=== PATIENT | female | born 2000 ===

== ENCOUNTER 2022-02-15 13:52 | Inpatient (IN) ==
[2022-02-15] MEDS ORDERED: Famotidine 20 MG/2 ML VIAL IVP PRN (15:13)
[2022-02-15] MEDS ORDERED: Naloxone 0.4 MG/ML INJ IVP PRN (15:13)
[2022-02-15] MEDS ORDERED: Ondansetron 4 MG/2 ML VIAL IVP PRN (15:13)
[2022-02-15] MEDS ORDERED: Metoclopramide 10 MG/2 ML VIAL IVP PRN (15:13)
[2022-02-15 15:49] LABS: Amphetamine Screen,Urine Negative ng/mL (Cutoff=1000); Barbiturate Screen,Urine Negative ng/mL (Cutoff=200); Benzodiazepines Screen,Urine Negative ng/mL (Cutoff=200); Cannabinoid Screen,Urine Negative ng/mL (Cutoff = 50); Cocaine Screen,Urine Negative ng/mL (Cutoff= 300); Opiate Screen,Urine Negative ng/mL (Cutoff=300); Phencyclidine Screen,Urine Negative ng/mL (Cutoff=25); Protein/Creatinine Ratio,Urine 0.18 mg/mg (0.00-0.20)
[2022-02-15 15:50] LABS: Basophils % 0.3 %; Eosinophils # 0.1 K/mcL (0.0-0.6); Eosinophils % 0.9 %; Hematocrit 34.4 % (35.3-44.9); Hemoglobin 11.1 g/dL (11.5-15.4); Immature Granulocytes % 0.7 % (0-4); Lymphocytes # 1.6 K/mcL (0.6-4.6); Lymphocytes % 17.5 %; Mean Corpuscular HGB Conc 32.3 g/dL (31.6-35.5); Mean Corpuscular Volume 86.9 fL (83.0-100.0); Mean Platelet Volume 11.1 fL (9.4-12.4); Monocytes # 0.7 K/mcL (0.0-1.3); Monocytes % 7.6 %; Neutrophils # 6.7 K/mcL (1.6-8.9); Platelet Count 214 K/mcL (140-400); Red Blood Count 3.96 M/mcL (3.82-4.97); Red Cell Distribution Width 13.2 % (11.5-14.5); White Blood Count 9.1 K/mcL (4.3-11.1)
[2022-02-15] MEDS ORDERED: Ropivacaine/PF 0.2% 20 ML VIAL EP ONE (15:52)
[2022-02-15] MEDS ORDERED: EPHEDrine 50 MG/ML VIAL IVP PRN (15:52)
[2022-02-15] MEDS ORDERED: *HR* FentaNYL (PF) 100 MCG/2 ML VIAL EP ONE (15:52)
[2022-02-15] MEDS ORDERED: miSOPROStoL 25 MCG TABLET VG PRN (16:00)
[2022-02-15 16:12] LABS: Alanine Aminotransferase 6 Units/L (7-52); Aspartate Amino Transferase 14 Units/L (13-39); BUN/Creatinine Ratio 23 (6-26); Blood Urea Nitrogen 15 mg/dL (6-20); Lactate Dehydrogenase 190 Units/L (140-271); Uric Acid 5.2 mg/dL (2.3-7.6)
[2022-02-15] MEDS ORDERED: Morphine Sulfate 2 MG/ML SYRINGE IVP PRN (23:41)
[2022-02-16] MEDS ORDERED: miSOPROStoL 25 MCG TABLET PO ONE (04:27)
[2022-02-16] MEDS ORDERED: Prenatal Vit/FA 1 EACH TABLET PO SCH (09:00)
[2022-02-16] MEDS ORDERED: Oxytocin 30 UNIT/503 ML BAG IVC SCH ×2 (09:00→22:44)
[2022-02-16] MEDS ORDERED: Ringers Solution, Lactated 1,000 ML ONE (11:47)
[2022-02-16] MEDS: D5% in Lactated Ringers 1,000 ML IVC SCH (14:05)
[2022-02-16] MEDS: Epidural Premix (fent/bupiv) 110 ML EP SCH (14:05)
[2022-02-16] MEDS ORDERED: Ringers Solution, Lactated 1,000 ML IVC SCH ×2 (14:15→22:44)
[2022-02-16] MEDS ORDERED: 0.9 % Sodium Chloride 1,000 ML ONE (16:43)
[2022-02-16] MEDS ORDERED: Clindamycin 900 MG/50 ML 900 MG/50 ML IV.SOLN IVPB ONE (19:14)
[2022-02-16] MEDS ORDERED: Oxytocin 30 UNIT/503 ML BAG IVC ONE (19:16)
[2022-02-16] MEDS ORDERED: Acetaminophen IV 1,000 MG/100 ML BAG IVPB ONE (19:31)
[2022-02-16] MEDS ORDERED: Ketorolac 30 MG/ML VIAL ONE (19:32)
[2022-02-16] MEDS ORDERED: Ondansetron 4 MG/2 ML VIAL ONE (19:32)
[2022-02-16] MEDS ORDERED: Metoclopramide 10 MG/2 ML VIAL IVP PRN (22:44)
[2022-02-16] MEDS ORDERED: *HR* Enoxaparin 60 MG/0.6 ML SYRINGE SQ SCH (22:44)
[2022-02-16] MEDS ORDERED: OXYTOCIN/RINGERS LACTATE 10 UNIT/166.6 ML BAG IVC ONE (22:44)
[2022-02-16] MEDS ORDERED: Ondansetron 4 MG/2 ML VIAL IVP PRN (22:44)
[2022-02-16] MEDS ORDERED: Simethicone 80 MG TAB.CHEW PO PRN (22:44)
[2022-02-16] MEDS ORDERED: Rho Immune Globulin 1,500 UNIT SYRINGE IM ONE (22:44)
[2022-02-16] MEDS ORDERED: *HR* OxyCODONE Immed Rel 5 MG TABLET PO PRN (22:44)
[2022-02-16] MEDS: Ibuprofen 600 MG TABLET PO SCH (23:29)
[2022-02-16] MEDS: Acetaminophen 325 MG TABLET PO SCH (23:30)
[2022-02-17 04:50] LABS: Basophils % 0.2 %; Hematocrit 28.9 % (35.3-44.9); Hemoglobin 9.6 g/dL (11.5-15.4); Immature Granulocytes % 0.5 % (0-4); Lymphocytes # 1.5 K/mcL (0.6-4.6); Lymphocytes % 9.9 %; Mean Corpuscular HGB Conc 33.2 g/dL (31.6-35.5); Mean Corpuscular Hemoglobin 28.3 pg (28.0-33.3); Mean Corpuscular Volume 85.3 fL (83.0-100.0); Mean Platelet Volume 11.3 fL (9.4-12.4); Monocytes # 1.1 K/mcL (0.0-1.3); Monocytes % 6.8 %; Neutrophils # 12.8 K/mcL (1.6-8.9); Platelet Count 221 K/mcL (140-400); Red Blood Count 3.39 M/mcL (3.82-4.97); Red Cell Distribution Width 13.2 % (11.5-14.5); Segmented Neutrophils % 82.6 %
[2022-02-17 04:54] LABS: White Blood Count 15.5 K/mcL (4.3-11.1)
[2022-02-17] MEDS: Ibuprofen 600 MG TABLET PO SCH ×3 (05:31→23:19)
[2022-02-17] MEDS: Acetaminophen 325 MG TABLET PO SCH ×3 (05:31→23:19)
[2022-02-17] MEDS: Prenatal Vit/FA 1 EACH TABLET PO SCH (09:18)
[2022-02-17] MEDS: *HR* Enoxaparin 60 MG/0.6 ML SYRINGE SQ SCH ×2 (09:19→21:42)
[2022-02-18] MEDS ORDERED: Lanolin 7 G OINT...G. TP PRN (04:09)
[2022-02-18] MEDS: Acetaminophen 325 MG TABLET PO SCH (05:47)
[2022-02-18] MEDS: Ibuprofen 600 MG TABLET PO SCH (05:47)
[2022-02-18 07:14] VITALS: BP 108/63; PULSE 96; TEMP 98.1; O2SAT 97
[2022-02-18] MEDS: *HR* Enoxaparin 60 MG/0.6 ML SYRINGE SQ SCH (09:44)
[2022-02-18] MEDS: Prenatal Vit/FA 1 EACH TABLET PO SCH (09:44)
== END 2022-02-18 10:43 | disposition home or self-care (01) | DRG 788 ==
LOC: 1NENULAB 13:52 → 1NENUOBS 02-16 22:32
PROVIDERS: ADMIT Obstetrics & Gynecology; ATTEND Obstetrics & Gynecology